=== PATIENT | female | born 1970 | race Caucasian/White ===

== ENCOUNTER 2019-07-17 16:55 | Emergency (ER) | payer OTHER ==
[~2019-07-17] VITALS: Ht 172.7 cm; Wt 70.5 kg
[2019-07-17 16:56] VITALS: BP 187/96
== END 2019-07-17 17:25 | disposition home or self-care (01) ==
LOC: ER 16:56
DX: J02.9 Acute pharyngitis, unspecified (principal); Z20.828 Contact with and (suspected) exposure to other viral communicable diseases; R50.9 Fever, unspecified; R05 Cough
CPT/HCPCS: 36415; 87502; 87503; 87635; 99283